=== PATIENT | female | born 1980 | race Caucasian/White ===

== ENCOUNTER 2017-02-22 19:34 | Emergency (ER) | payer MEDICAID ==
[2017-02-22 21:23] VITALS: BP 119/67
== END 2017-02-22 21:48 | disposition home or self-care (01) ==
LOC: ED 19:34
DX: J02.9 Acute pharyngitis, unspecified (principal); Z79.1 Long term (current) use of non-steroidal anti-inflammatories (NSAID)
CPT/HCPCS: J0696